=== PATIENT | female | born 1940 | race African-American/Black ===

== ENCOUNTER 2023-01-19 12:09 | Emergency (ER) | payer OTHER, MEDICAID ==
[~2023-01-19] VITALS: Ht 165.1 cm; Wt 58.4 kg
[2023-01-19] MEDS ORDERED: IOHEXOL-350 100 ML BOTTLE ONE (12:48)
[2023-01-19 13:19] LABS: BASOPHILS % 0.9 % (0.0-2.0); EOSINOPHILS % 0.1 % (0.0-5.0); HEMATOCRIT. 38.4 % (36.0-48.0); HEMOGLOBIN. 13.2 g/dL (12.0-16.0); LYMPHOCYTES % 27.3 % (20.0-50.0); MEAN CORPUSCULAR HEMOGLOBIN 29.9 pg (28.0-32.0); MEAN CORPUSCULAR VOLUME 87.4 fL (81.0-99.0); MEAN PLATELET VOLUME 8.5 fl (7.4-10.4); MONOCYTES % 6.9 % (2.0-8.0); NEUTROPHILS % 64.8 % (40.0-76.0); PLATELET 238 x1000/uL (130-400); RED CELL DISTRIBUTION WIDTH 15.3 % (11.6-14.6)
[2023-01-19 13:29] LABS: PARTIAL THROMBOPLASTIN TIME 29.4 sec (23.4-31.0); PROTHROMBIN TIME 10.8 sec (9.6-11.0)
[2023-01-19] MEDS ORDERED: CLOPIDOGREL 75MG TABLET PO ONE (13:30)
[2023-01-19] MEDS ORDERED: ASPIRIN 325MG EC TABLET PO ONE (13:30)
[2023-01-19 13:32] LABS: CHLORIDE 107 mEq/L (98-107)
[2023-01-19 18:00] VITALS: BP 120/75
== END 2023-01-19 20:33 | disposition short-term general hospital (02) ==
LOC: ER 12:17
DX: R41.82 Altered mental status, unspecified (principal); I49.9 Cardiac arrhythmia, unspecified; Z20.822 Contact with and (suspected) exposure to COVID-19
CPT/HCPCS: 36415; 70450; 70496; 70498; 71045; 80053; 82962; 83880; 84484; 85025; 85610; 85730; 86850; 86900; 86901; 87426; 93005; 99291; C9803; Q9967